=== PATIENT | female | born 1955 | race Two or more races ===

== ENCOUNTER 2024-12-19 07:48 | Day surgery (SDC) | payer MEDICARE, MEDICAID ==
[2024-12-10 15:46] LABS: LEUKOCYTE ESTERASE ,URINE SMALL (Neg); MEAN PLATELET VOLUME 8.9 FL (7.4-10.4); NITRITES, URINE NEGATIVE (Neg); OCCULT BLOOD,URINE NEGATIVE (Neg); PRE OP HEMATOCRIT 38.0 % (35.0-45.0); PRE OP HEMOGLOBIN 12.9 g/dL (12.0-16.0); PRE OP PLATELET COUNT 181 X10'3 (140-440); PRE OP WHITE BLOOD COUNT 5.5 10'3 (4.8-10.8); RED CELL DISTRIBUTION WIDTH 12.8 % (11.5-14.5)
[2024-12-10 15:48] LABS: UA COLLECTION TYPE NON-SPECIFIED
[2024-12-10 15:52] LABS: SQUAMOUS EPITHELIAL CELL,UR MANY /LPF (FEW)
[2024-12-10 15:54] LABS: YEAST MODERATE /HPF (NEGATIVE)
[2024-12-10 16:03] LABS: CREATININE 0.77 MG/DL (0.40-0.90); PRE OP ALT 58 U/L (30-65); PRE OP ANION GAP 9 (8-16); PRE OP AST 33 U/L (10-37); PRE OP BILIRUB, TOTAL 0.2 MG/DL (0.0-1.0); PRE OP GLUCOSE 120 MG/DL (70-104); PRE OP SODIUM 142 MMOL/L (135-145); TOTAL CARBON DIOXIDE 28.9 MMOL/L (24-32); eGFR 74 ML/MIN
[2024-12-10 16:08] LABS: PRE OP POTASSIUM 2.9 MMOL/L (3.4-5.1)
[2024-12-19] VITALS (10 sets, daily range): BP systolic 110–134; BP diastolic 52–68; PULSE 48–63; RESP 13–16; TEMP 97.3; O2SAT 97–100
[~2024-12-19] VITALS: Ht 152.4 cm; Wt 64.2 kg
[~2024-12-19 07:48] MED LIST: CHOL50004 PO; DOCUMENT DATE & TIME OF BETA-BLOCKER PO ONE; ERGO500041 PO; FENO43CA8 PO; IBUP-2417 PO; LOSA1TAB36 PO; MAGN400T29 PO; METO-539 PO; OMEP40CA21 PO; TAMO20TA4 PO; ZINC220T3 PO; ceFAZolin/D5W- 1GM premix 50 ML IV ONE
[2024-12-19] MEDS ORDERED: ringers solution, lacted 1,000 ML IV SCH (08:15)
[2024-12-19] MEDS ORDERED: labetalol 20mg/4ml (5mg/ml) syringe IV PRN (08:15)
[2024-12-19] MEDS ORDERED: ondansetron/PF 4mg/2ml inj IV PRN (08:15)
[2024-12-19] MEDS ORDERED: HYDROmorphone/PF 0.2 MG/ML SYRINGE IV PRN ×2 (08:15)
[2024-12-19] MEDS ORDERED: morphine 4 MG/ML inj SYRINge IV PRN (08:15)
[2024-12-19] MEDS ORDERED: acetaminophen 1,000mg/100ml IV 100 ML IV PRN (08:15)
[2024-12-19] MEDS ORDERED: hydrALAZINE 20mg/ml inj. IV PRN (08:15)
[2024-12-19] MEDS: ringers solution, lacted 1,000 ML IV SCH (08:44)
[2024-12-19] MEDS: ceFAZolin 2gm/dext,iso 50mL 50 ML IV ONE (08:45)
[2024-12-19 09:09] LABS: ISTAT ANION GAP 10.0 (8-12); ISTAT BUN 11.0 mg/dL (7-18); ISTAT CL 102.0 mmol/L (99-107); ISTAT CREATININE 0.8 mg/dL (0.6-1.1); ISTAT GLUCOSE 101.0 mg/dL (70-104); ISTAT HGB 11.6 g/dl (12.0-16.0); ISTAT Hct 34.0 %PCV (35-45); ISTAT IONIZED CALCIUM 1.34 mmol/L (1.03-1.32); ISTAT K 3.3 mmol/L (3.5-5.1); ISTAT NA 139.0 mmol/L (135-145); ISTAT TOTAL CO2 27.0 mmol/L (24-32); ISTAT eGFR 71.0 ML/MIN; POC BUN/CREATININE RATIO 13.8 (6.6-38.0)
[2024-12-19] MEDS ORDERED: BUPIVAcaine 2.5mg/ml inj 50ml vial (contains preservative) ONE (09:14)
[2024-12-19] MEDS ORDERED: fentaNYL/PF 50MCG/1 ML 2ML syringe ONE (09:28)
[2024-12-19] MEDS ORDERED: midazolam 1 mg/ML 2ml injection ONE (09:28)
[2024-12-19] MEDS ORDERED: bacitracin 15gm ointment TP ONE (10:11)
[2024-12-19] MEDS ORDERED: dexamethasone sod phosphate 4mg/ml inj. ONE (10:23)
[2024-12-19] MEDS ORDERED: ondansetron/PF 4mg/2ml inj ONE (10:23)
[2024-12-19] MEDS ORDERED: propofol inj 20 ML IV ONE (10:23)
[2024-12-19] MEDS: bacitracin 15gm ointment TP ONE (10:25)
--- NOTE | 2024-12-20 09:57 | OPERATIVE REPORT ---
DATE OF SURGERY: 12/19/2024 DICTATING PHYSICIAN: Price Carpio MD PREOPERATIVE DIAGNOSES: * Painful retained hardware, right foot. * Scar tissue formation, right foot. * Bunion deformity with hallux valgus, right foot. POSTOPERATIVE DIAGNOSES: * Painful retained hardware, right foot. * Scar tissue formation, right foot. * Bunion deformity with hallux valgus, right foot. PROCEDURES PERFORMED: * Hardware removal with scar excision, right foot. * Mercado bunionectomy, right foot. SURGEON: Price Carpio MD ADJUNCT SPANISH INSTRUCTOR: None. ANESTHESIA: General. ANESTHESIOLOGIST: Dr. Ayala. ESTIMATED BLOOD LOSS: Minimal. COMPLICATIONS: None. IMPLANTS USED: None. INDICATIONS: The patient presented to my office with above-stated chief complaints. The patient's condition has been unresponsive to conservative treatment to this point, thus surgical options were offered at this time along with all potential risks, complications, expected outcomes being fully explained to the patient's full understanding. No guarantees were given. Clinical and radiographic findings do correlate well with the above diagnosis. DESCRIPTION OF PROCEDURE: The patient was brought to the operating room, placed on the operating table in supine position. Upon administration of general anesthesia, the right foot and leg were scrubbed, prepped and draped in usual aseptic manner. Pneumatic calf tourniquet, which had previously been applied, was now inflated to approximately 250 mmHg. Next, a small vertical incision was created overlying the posterior aspect of the calcaneus on the right hindfoot. This was created through the previously placed skin incision. This was exposed in a layered fashion down to deep tissue and bone. There was noted to be a moderate amount of scar tissue formation in this area. The scar tissue was carefully excised and removed from the operative field. The retained calcaneal screw was identified in standard fashion. This was removed in standard fashion and noted to be completely intact. All rough or prominent bony edges at the screw removal site were then carefully removed with a small rongeur. The wound was then flushed with sterile saline and closed with 3-0 nylon. Next, a 4 cm linear incision was performed overlying the medial aspect of the first MTP joint on the right foot. The incision was deepened in layered fashion down to the first MTP joint where a medial T-shaped capsulotomy was performed. A saddle saw was used to resect the medial bony eminence from the first metatarsal head. A lateral capsulotomy was performed. A medial capsulorrhaphy was performed at the medial aspect of the capsule in the first MTP joint and repaired with several [id number] 0 Vicryl sutures. intraoperative fluoroscopy was utilized at this time to assess correction of above-stated deformities noted to be excellent. All wounds were then flushed with copious amounts of sterile saline. All deep and subcutaneous tissues were reapproximated utilizing 3-0 Vicryl. Skin incisions were reapproximated utilizing 3-0 nylon. Next, 20 mL of 0.25% Marcaine plain was infiltrated proximal to the surgical site. All wounds were covered with sterile triple antibiotic ointment, sterile Adaptic, sterile 4 x 4's, sterile Webril, Adin bandage and the patient was placed in moderate compressive dressing. Sedation was now discontinued. Tourniquet was deflated with immediate hyperemic response to the left foot. The patient was taken to PACU for postoperative monitoring. All vitals were stable and vascular status intact. The patient follow up with me in the office in approximately 1-2 weeks. Price Carpio MD TID: [id number] RECEIPT: [id number] ELVIA/RASHMI/EVELIO
== END 2024-12-19 11:30 | disposition home or self-care (01) ==
LOC: PAS 07:48
PROVIDERS: ATTEND Podiatrist Foot & Ankle Surgery
DX: T84.84XA Pain due to internal orthopedic prosthetic devices, implants and grafts, initial encounter (principal); M21.611 Bunion of right foot; M20.11 Hallux valgus (acquired), right foot; L90.5 Scar conditions and fibrosis of skin; I10 Essential (primary) hypertension; K21.9 Gastro-esophageal reflux disease without esophagitis; Z87.891 Personal history of nicotine dependence; Z79.82 Long term (current) use of aspirin; Z79.891 Long term (current) use of opiate analgesic; Z79.899 Other long term (current) drug therapy; Z90.710 Acquired absence of both cervix and uterus; Z96.652 Presence of left artificial knee joint; Z98.890 Other specified postprocedural states; Z80.3 Family history of malignant neoplasm of breast; Y79.2 Prosthetic and other implants, materials and accessory orthopedic devices associated with adverse incidents; Y92.89 Other specified places as the place of occurrence of the external cause
CPT/HCPCS: 20680; 28292; 36415; 73650; 80047; 80053; 81001; 85025; A4215; A4618; A6223; A6253; A6402; A6449; A7000; J1100; J2250; J2405; J2704; J3010; J3490; J7030; J7120; L4360; Z7506; Z7508; Z7512; Z7610; 76000; J0690